=== PATIENT | female | born 1945 | race Caucasian/White ===

== ENCOUNTER 2018-06-29 17:36 | Emergency (ER) | payer MEDICARE, MEDICAID ==
[~2018-06-29] VITALS: Ht 182.9 cm; Wt 81.8 kg
[~2018-06-29 17:36] MED LIST: ATOR10TA70 PO; CLOP75TA15 PO; GABA-530 PO; HYDR-4383 PO; LEVO125T8 PO; LOSA50TA3 PO; METO25TA6 PO; NITR0.4T48 SL; TIZA2TAB4 PO
[2018-06-29 17:44] VITALS: BP 157/54
[2018-06-29] MEDS ORDERED: DOXYCYCLINE 100MG CAPSULE PO STA (18:10)
[2018-06-29] MEDS ORDERED: DOXY100C43 PO (18:12)
== END 2018-06-29 18:37 | disposition home or self-care (01) ==
LOC: ER 17:36
DX: S40.261A Insect bite (nonvenomous) of right shoulder, initial encounter (principal); F15.90 Other stimulant use, unspecified, uncomplicated; F17.210 Nicotine dependence, cigarettes, uncomplicated; Z79.899 Other long term (current) drug therapy; W57.XXXA Bitten or stung by nonvenomous insect and other nonvenomous arthropods, initial encounter; Y93.89 Activity, other specified; Y92.89 Other specified places as the place of occurrence of the external cause; Y99.8 Other external cause status
CPT/HCPCS: 99283

== ENCOUNTER 2018-09-30 18:45 | Emergency (ER) | payer MEDICARE, MEDICAID ==
[~2018-09-30] VITALS: Ht 180.3 cm; Wt 89.0 kg
[2018-09-30 21:50] LABS: BASOPHILS # (AUTO) 0.1 X10'3 (0-0.2); BASOPHILS % (AUTO) 0.9 % (0-1); EOSINOPHILS # (AUTO) 0.2 X10'3 (0-0.9); EOSINOPHILS % (AUTO) 2.1 % (0-6); HEMATOCRIT 45.9 % (35.0-45.0); HEMOGLOBIN 15.3 g/dl (12.0-16.0); LYMPHOCYTES # (AUTO) 2.8 X10'3 (1.1-4.8); LYMPHOCYTES % (AUTO) 33.5 % (21-51); MEAN CORPUSCULAR HEMOGLOBIN 31.5 PG (27.0-31.0); MEAN CORPUSCULAR HGB CONC 33.4 g/dL (33.0-36.5); MEAN CORPUSCULAR VOLUME 94.3 FL (78-98); MEAN PLATELET VOLUME 9.2 FL (7.4-10.4); MONOCYTES # (AUTO) 0.9 X10'3 (0-0.9); MONOCYTES % (AUTO) 10.5 % (2-12); NEUTROPHILS # (AUTO) 4.4 X10'3 (1.8-7.7); PLATELET COUNT 250 X10'3 (140-440); RED BLOOD COUNT 4.86 X10'6 (4.20-5.60); RED CELL DISTRIBUTION WIDTH 13.9 % (11.5-14.5); WHITE BLOOD COUNT 8.2 X10'3 (4.5-11.0)
[2018-09-30 22:10] LABS: ALANINE AMINOTRANSFERASE 108 U/L (12-78); ALBUMIN 3.8 G/DL (3.4-5.0); ALBUMIN/GLOBULIN RATIO 0.8 (1.1-1.5); ALKALINE PHOSPHATASE 62 IU/L (46-116); ANION GAP 10 (8-16); ASPARTATE AMINO TRANSFERASE 62 U/L (10-37); BILIRUBIN,TOTAL 0.6 MG/DL (0.1-1.0); BLOOD UREA NITROGEN 13 MG/DL (7-18); BUN/CREATININE RATIO 19.1 (6.6-38.0); CHLORIDE 104 MMOL/L (99-107); CREATININE 0.68 MG/DL (0.40-0.90); GLUCOSE 108 MG/DL (70-104); SODIUM 140 MMOL/L (135-145); TOTAL CARBON DIOXIDE 26.1 MMOL/L (24-32); TOTAL PROTEIN 8.7 G/DL (6.4-8.2); eGFR 85 ML/MIN
[2018-09-30 22:11] LABS: D-DIMER 0.48 MG/L FEU (0-0.50); PARTIAL THROMBOPLASTIN TIME 25 SECONDS (22-32)
[2018-09-30 22:15] LABS: ETHANOL < 0.010 GM/DL (0.0-0.010)
[2018-09-30 22:16] VITALS: BP 128/71
[2018-09-30] MEDS ORDERED: AZIT-63 PO (22:47)
== END 2018-09-30 23:04 | disposition home or self-care (01) ==
LOC: ER 18:46
DX: R06.02 Shortness of breath (principal); R05 Cough; E78.00 Pure hypercholesterolemia, unspecified; I10 Essential (primary) hypertension; F15.90 Other stimulant use, unspecified, uncomplicated; Z86.73 Personal history of transient ischemic attack (TIA), and cerebral infarction without residual deficits; Z79.2 Long term (current) use of antibiotics; Z79.899 Other long term (current) drug therapy; Z98.890 Other specified postprocedural states
CPT/HCPCS: 36415; 71045; 80053; 80320; 83880; 84484; 85025; 85379; 85610; 85730; 93005; 99284

== ENCOUNTER 2019-08-17 20:51 | Inpatient (IN) | payer MEDICARE, MEDICAID ==
[~2019-08-17] VITALS: Ht 180.3 cm; Wt 86.0 kg
[~2019-08-17 20:51] MED LIST changes: -TIZA2TAB4 PO; +TIZA2TAB5 PO
[2019-08-17] MEDS ORDERED: aspirin 81mg tab.chew PO ONE (22:00)
[2019-08-17 22:42] LABS: BASOPHILS % (AUTO) 0.6 % (0-1); EOSINOPHILS # (AUTO) 0.1 X10'3 (0-0.9); EOSINOPHILS % (AUTO) 1.9 % (0-6); HEMOGLOBIN 14.9 g/dl (12.0-16.0); LYMPHOCYTES # (AUTO) 2.1 X10'3 (1.1-4.8); LYMPHOCYTES % (AUTO) 32.2 % (21-51); MEAN CORPUSCULAR HEMOGLOBIN 31.2 PG (27.0-31.0); MEAN CORPUSCULAR HGB CONC 33.8 g/dL (33.0-36.5); MEAN CORPUSCULAR VOLUME 92.4 FL (78-98); MEAN PLATELET VOLUME 9.7 FL (7.4-10.4); MONOCYTES # (AUTO) 0.8 X10'3 (0-0.9); MONOCYTES % (AUTO) 12.3 % (2-12); NEUTROPHILS # (AUTO) 3.5 X10'3 (1.8-7.7); PLATELET COUNT 235 X10'3 (140-440); RED BLOOD COUNT 4.77 X10'6 (4.20-5.60); RED CELL DISTRIBUTION WIDTH 13.9 % (11.5-14.5); WHITE BLOOD COUNT 6.6 X10'3 (4.5-11.0)
[2019-08-17 22:50] LABS: PARTIAL THROMBOPLASTIN TIME 25 SECONDS (22-32)
[2019-08-17 22:53] LABS: ALANINE AMINOTRANSFERASE 18 U/L (12-78); ALBUMIN/GLOBULIN RATIO 0.9 (1.1-1.5); ALKALINE PHOSPHATASE 51 IU/L (46-116); ANION GAP 9 (8-16); ASPARTATE AMINO TRANSFERASE 19 U/L (10-37); BILIRUBIN,TOTAL 0.4 MG/DL (0.1-1.0); BLOOD UREA NITROGEN 16 MG/DL (7-18); BUN/CREATININE RATIO 23.2 (6.6-38.0); CALCIUM 8.9 MG/DL (8.5-10.1); CHLORIDE 106 MMOL/L (99-107); CREATININE 0.69 MG/DL (0.40-0.90); GLUCOSE 103 MG/DL (70-104); POTASSIUM 3.7 MMOL/L (3.5-5.1); SODIUM 142 MMOL/L (135-145); TOTAL CARBON DIOXIDE 27.1 MMOL/L (24-32); TOTAL PROTEIN 8.4 G/DL (6.4-8.2); eGFR 84 ML/MIN
[2019-08-17 23:01] LABS: MAGNESIUM 2.1 MG/DL (1.5-2.4)
[2019-08-18] VITALS (9 sets, daily range): BP systolic 120–160; BP diastolic 40–95
[2019-08-18 00:39] LABS: ETHANOL 0.018 GM/DL (0.0-0.010)
[2019-08-18] MEDS ORDERED: mag hydrox/Alum hydrox/simeth 30ml oral suspension PO PRN (00:55)
[2019-08-18] MEDS ORDERED: LORazepam 2 mg/ml vial IV PRN (00:55)
[2019-08-18] MEDS ORDERED: magnesium 2GM in 50ml NS 50 ML IV PRN (00:55)
[2019-08-18] MEDS ORDERED: ondansetron/PF 4mg/2ml inj IV PRN (00:55)
[2019-08-18] MEDS ORDERED: acetaminophen 325mg tablet PO PRN (00:55)
[2019-08-18] MEDS ORDERED: potassium CL 10mEq/100ml bag 100 ML IV PRN ×2 (00:55)
[2019-08-18] MEDS ORDERED: LORazepam 1 MG tablet PO PRN (00:55)
[2019-08-18] MEDS ORDERED: magnesium Cl slow-release 64mg tablet PO PRN (00:55)
[2019-08-18] MEDS ORDERED: potassium Cl 20 mEq SR tablet PO PRN ×2 (00:55)
[2019-08-18] MEDS ORDERED: magnesium 4gm in 100ml NS 100 ML IV PRN (00:55)
[2019-08-18] MEDS ORDERED: ESOM20CA PO (00:56)
[2019-08-18] MEDS ORDERED: levothyroxine PO (00:56)
--- NOTE | 2019-08-18 01:57 | NUR ---
Patient in room . I have received report from ROCIO Salgado and had the opportunity to ask questions and assume patient care.
[2019-08-18] MEDS: normal saline 1000ml 1,000 ML IV SCH ×3 (02:31→12:25)
[2019-08-18] MEDS: acetaminophen 325mg tablet PO PRN ×3 (02:34→23:40)
--- NOTE | 2019-08-18 06:43 | NUR ---
Patient in room ORTHO 4011. I have received report from Jenni CHAN and had the opportunity to ask questions and assume patient care.
[2019-08-18] MEDS: K and/or MAG REPLACEMENT MC SCH ×2 (07:30→20:00)
[2019-08-18] MEDS: docusate sod 100mg capsule PO SCH ×2 (07:34→20:04)
[2019-08-18] MEDS: heparin, porcine 5000 units/ml vial SQ SCH ×2 (07:35→20:05)
[2019-08-18 08:26] LABS: URINE AMPHETAMINE SCREEN NEGATIVE (Neg); URINE BARBITUATE SCREEN NEGATIVE (Neg); URINE BENZODIAZEPINES SCREEN NEGATIVE (Neg); URINE CANNABINOID SCREEN POSITIVE (Neg); URINE COCAINE SCREEN NEGATIVE (Neg); URINE METHADONE SCREEN NEGATIVE (Neg); URINE OPIATE SCREEN NEGATIVE (Neg); URINE PHENCYCLIDINE SCREEN NEGATIVE (Neg)
[2019-08-18] MEDS ORDERED: LEVO137T2 PO (14:47)
[2019-08-18] MEDS ORDERED: METO25TA6 PO (14:48)
--- NOTE | 2019-08-18 18:33 | NUR ---
Problems reprioritized. Patient report given, questions answered & plan of care reviewed with Jenni CHAN.
[2019-08-18] MEDS: metoprolol tartrate 25mg tablet PO SCH (20:04)
[2019-08-19] MEDS: normal saline 1000ml 1,000 ML IV SCH (01:03)
[2019-08-19 01:06] VITALS: BP 130/64
[2019-08-19 05:06] VITALS: BP 132/85
[2019-08-19 06:00] VITALS: BP 132/85
[2019-08-19 06:12] LABS: BASOPHILS # (AUTO) 0.1 X10'3 (0-0.2); BASOPHILS % (AUTO) 0.9 % (0-1); EOSINOPHILS # (AUTO) 0.3 X10'3 (0-0.9); EOSINOPHILS % (AUTO) 4.3 % (0-6); HEMOGLOBIN 13.2 g/dl (12.0-16.0); LYMPHOCYTES # (AUTO) 3.4 X10'3 (1.1-4.8); LYMPHOCYTES % (AUTO) 52.8 % (21-51); MEAN CORPUSCULAR HEMOGLOBIN 31.9 PG (27.0-31.0); MEAN CORPUSCULAR HGB CONC 34.6 g/dL (33.0-36.5); MEAN CORPUSCULAR VOLUME 92.3 FL (78-98); MEAN PLATELET VOLUME 9.9 FL (7.4-10.4); MONOCYTES # (AUTO) 0.7 X10'3 (0-0.9); MONOCYTES % (AUTO) 11.6 % (2-12); NEUTROPHILS # (AUTO) 1.9 X10'3 (1.8-7.7); NEUTROPHILS % (AUTO) 30.4 % (42-75); PLATELET COUNT 199 X10'3 (140-440); RED BLOOD COUNT 4.12 X10'6 (4.20-5.60); RED CELL DISTRIBUTION WIDTH 13.9 % (11.5-14.5); WHITE BLOOD COUNT 6.4 X10'3 (4.5-11.0)
[2019-08-19 06:22] LABS: ALANINE AMINOTRANSFERASE 11 U/L (12-78); ALBUMIN 3.3 G/DL (3.4-5.0); ALBUMIN/GLOBULIN RATIO 0.9 (1.1-1.5); ALKALINE PHOSPHATASE 42 IU/L (46-116); ANION GAP 8 (8-16); ASPARTATE AMINO TRANSFERASE 16 U/L (10-37); BILIRUBIN,TOTAL 0.6 MG/DL (0.1-1.0); BLOOD UREA NITROGEN 17 MG/DL (7-18); BUN/CREATININE RATIO 28.8 (6.6-38.0); CALCIUM 8.6 MG/DL (8.5-10.1); CHLORIDE 111 MMOL/L (99-107); CHOL/HDL RATIO 3.7 (0.00-4.99); CHOLESTEROL 158 MG/DL (0-200); CREATININE 0.59 MG/DL (0.40-0.90); GLUCOSE 95 MG/DL (70-104); HDL CHOLESTEROL 43 MG/DL (35-60); LDL CHOLESTEROL 101 MG/DL (50-100); MAGNESIUM 1.9 MG/DL (1.5-2.4); POTASSIUM 3.7 MMOL/L (3.5-5.1); SODIUM 142 MMOL/L (135-145); TOTAL CARBON DIOXIDE 23.2 MMOL/L (24-32); TOTAL PROTEIN 7.1 G/DL (6.4-8.2); TRIGLYCERIDES 76 MG/DL (20-135); eGFR > 90 ML/MIN
--- NOTE | 2019-08-19 06:26 | NUR ---
Problems reprioritized. Patient report given, questions answered & plan of care reviewed with ROCIO Campbell.
[2019-08-19] MEDS ORDERED: levoTHYROXINE 112mcg tablet PO SCH (07:00)
[2019-08-19] MEDS ORDERED: levoTHYROXINE 25mcg tablet PO SCH (07:00)
[2019-08-19] MEDS ORDERED: pantoprazole 40mg Tablet.DR PO SCH (07:30)
[2019-08-19] MEDS: docusate sod 100mg capsule PO SCH (07:39)
[2019-08-19] MEDS: metoprolol tartrate 25mg tablet PO SCH (07:43)
[2019-08-19] MEDS: heparin, porcine 5000 units/ml vial SQ SCH (07:44)
[2019-08-19] MEDS: K and/or MAG REPLACEMENT MC SCH (08:00)
[2019-08-19 10:00] VITALS: BP_SYST 128; BP_SYST 151; BP_SYST 152; BP_DIAS 55; BP_DIAS 60; BP_DIAS 70
[2019-08-19] MEDS ORDERED: METO25TA6 PO (10:14)
[2019-08-19] MEDS ORDERED: ASPI-611 PO (10:14)
[2019-08-19] MEDS ORDERED: LEVO25TA7 PO (10:14)
[2019-08-19 10:50] LABS: CLARITY,URINE SLIGHTLY CLOUDY (Clear); COLOR,URINE STRAW (Yellow); GLUCOSE, URINE NEGATIVE (Neg); KETONES,URINE NEGATIVE (Neg); LEUKOCYTE ESTERASE ,URINE MODERATE (Neg); NITRITES, URINE NEGATIVE (Neg); OCCULT BLOOD,URINE NEGATIVE (Neg); PROTEIN,URINE NEGATIVE (Neg); UROBILINOGEN,URINE 0.2 E.U/dL (0.2-1.0)
[2019-08-19 10:54] LABS: UA COLLECTION TYPE VOIDED
[2019-08-19 10:56] LABS: BACTERIA,URINE 1+ /HPF (Neg); MUCUS STRANDS NONE SEEN /LPF (Neg); RBC,URINE NONE SEEN /HPF (0-2); SQUAMOUS EPITHELIAL CELL,UR MODERATE /LPF (FEW); WBC CLUMPS,URINE FEW /HPF (NEGATIVE)
--- NOTE | 2019-08-20 15:39 | NUR ---
Case management DC follow up: unable to contact. pt number is disconnected, pt roommate number mailbox full
== END 2019-08-19 13:11 | disposition home or self-care (01) | DRG 93 ==
LOC: ER 20:52 → ED HOLD 08-18 00:54 → ORTHO 4S 08-18 02:07
PROVIDERS: ADMIT Internal Medicine; ATTEND Internal Medicine
DX: G92 Toxic encephalopathy (principal); E03.9 Hypothyroidism, unspecified; E78.00 Pure hypercholesterolemia, unspecified; E78.5 Hyperlipidemia, unspecified; F12.90 Cannabis use, unspecified, uncomplicated; F43.10 Post-traumatic stress disorder, unspecified; I10 Essential (primary) hypertension; I48.0 Paroxysmal atrial fibrillation; T44.7X5A Adverse effect of beta-adrenoreceptor antagonists, initial encounter; F15.90 Other stimulant use, unspecified, uncomplicated; K21.9 Gastro-esophageal reflux disease without esophagitis; R00.1 Bradycardia, unspecified; R26.89 Other abnormalities of gait and mobility; Z86.73 Personal history of transient ischemic attack (TIA), and cerebral infarction without residual deficits; Y92.89 Other specified places as the place of occurrence of the external cause
CPT/HCPCS: 36415; 70544; 70551; 71045; 80053; 80061; 80305; 80320; 81001; 83735; 83880; 84443; 84484; 85025; 85610; 85730; 87081; 93005; 93306; 93880; 97161; 97530; G0378; J1644; J7030

== ENCOUNTER 2021-05-07 03:21 | Inpatient (IN) | payer MEDICARE, MEDICAID ==
[~2021-05-07] VITALS: Ht 180.3 cm; Wt 81.8 kg
[~2021-05-07 03:21] MED LIST changes: -ATOR10TA70 PO; -CLOP75TA15 PO; +ESOM20CA PO; -GABA-530 PO; -HYDR-4383 PO; -LEVO125T8 PO; +LEVO137T2 PO; +LOP25T PO; -LOSA50TA3 PO; -METO25TA6 PO; -NITR0.4T48 SL; -TIZA2TAB5 PO
[2021-05-07 04:35] LABS: BASOPHILS % (AUTO) 0.4 % (0-1); EOSINOPHILS % (AUTO) 0.1 % (0-6); HEMATOCRIT 44.7 % (35.0-45.0); HEMOGLOBIN 15.2 g/dl (12.0-16.0); LYMPHOCYTES # (AUTO) 1.4 X10'3 (1.1-4.8); LYMPHOCYTES % (AUTO) 31.5 % (21-51); MEAN CORPUSCULAR HEMOGLOBIN 33.2 PG (27.0-31.0); MEAN CORPUSCULAR HGB CONC 33.9 g/dL (33.0-36.5); MEAN CORPUSCULAR VOLUME 97.9 FL (78-98); MEAN PLATELET VOLUME 9.9 FL (7.4-10.4); MONOCYTES # (AUTO) 0.6 X10'3 (0-0.9); MONOCYTES % (AUTO) 15.1 % (2-12); NEUTROPHILS # (AUTO) 2.3 X10'3 (1.8-7.7); NEUTROPHILS % (AUTO) 52.9 % (42-75); PLATELET COUNT 157 X10'3 (140-440); RED BLOOD COUNT 4.56 X10'6 (4.20-5.60); RED CELL DISTRIBUTION WIDTH 13.9 % (11.5-14.5); WHITE BLOOD COUNT 4.3 X10'3 (4.5-11.0)
[2021-05-07 04:47] LABS: D-DIMER 3.06 MG/L FEU (0-0.50); PARTIAL THROMBOPLASTIN TIME 31 SECONDS (22-32)
[2021-05-07 04:58] LABS: ALANINE AMINOTRANSFERASE 26 U/L (12-78); ALBUMIN 2.9 G/DL (3.4-5.0); ALBUMIN/GLOBULIN RATIO 0.7 (1.1-1.5); ALKALINE PHOSPHATASE 33 IU/L (46-116); ANION GAP 11 (8-16); ASPARTATE AMINO TRANSFERASE 38 U/L (10-37); BILIRUBIN,TOTAL 0.4 MG/DL (0.1-1.0); BLOOD UREA NITROGEN 12 MG/DL (7-18); BUN/CREATININE RATIO 17.1 (6.6-38.0); C-REACTIVE PROTEIN 3.47 MG/DL (0.0-0.5); CALCIUM 7.8 MG/DL (8.5-10.1); CHLORIDE 102 MMOL/L (99-107); GLUCOSE 136 MG/DL (70-104); SODIUM 136 MMOL/L (135-145); TOTAL CARBON DIOXIDE 23.2 MMOL/L (24-32); TOTAL PROTEIN 7.2 G/DL (6.4-8.2); eGFR 82 ML/MIN
[2021-05-07 05:03] LABS: POTASSIUM 2.8 MMOL/L (3.5-5.1)
--- NOTE | 2021-05-07 05:05 | NUR ---
Notified by lab of critical potassium value of 2.8. Notified physician Sin. No new orders yet.
[2021-05-07] MEDS ORDERED: DEXAMETHASONE 6 MG TABLET PO SCH (05:10)
[2021-05-07] MEDS ORDERED: DEXAMETHASONE 6 MG TABLET PO ONE (05:10)
[2021-05-07] MEDS ORDERED: acetaminophen 650mg rectal suppository RC PRN (05:15)
[2021-05-07] MEDS ORDERED: mag hydrox/Alum hydrox/simeth 30ml oral suspension PO PRN (05:15)
[2021-05-07] MEDS ORDERED: HYDROcodone/acetaminophen 5mg/325mg tablet PO PRN (05:15)
[2021-05-07] MEDS ORDERED: magnesium hydroxide 30ml (MOM) UD suspension PO PRN (05:15)
[2021-05-07] MEDS ORDERED: potassium Cl 20 mEq SR tablet PO PRN (05:15)
[2021-05-07] MEDS ORDERED: diphenhydrAMINE 50 mg/ml inj IV PRN (05:15)
[2021-05-07] MEDS ORDERED: diphenhydrAMINE 25mg capsule PO PRN (05:15)
[2021-05-07] MEDS ORDERED: morphine 2 MG/ML inj. syringe IV PRN ×2 (05:15)
[2021-05-07] MEDS ORDERED: ondansetron/PF 4mg/2ml inj IV PRN (05:15)
[2021-05-07] MEDS ORDERED: ondansetron 4mg rapidly disintigrating tab PO PRN (05:15)
[2021-05-07] MEDS ORDERED: acetaminophen 325mg tablet PO PRN ×2 (05:15)
[2021-05-07] MEDS ORDERED: bisacodyl 10mg suppository rectal RC PRN (05:15)
[2021-05-07] MEDS ORDERED: potassium Cl 40MEQ/1/2NS 520ml 520 ML IV PRN ×2 (05:15)
[2021-05-07] MEDS ORDERED: ALBUTEROL INHALER 1 PUFF/90 MCG INHALER IH PRN (05:25)
[2021-05-07] MEDS: potassium Cl 20 mEq SR tablet PO PRN ×2 (05:42→11:40)
[2021-05-07] MEDS: normal saline 1000ml 1,000 ML IV SCH ×2 (05:55→20:53)
[2021-05-07] MEDS ORDERED: iohexol 350MG/ML 100ml bottle IV ONE (06:01)
--- NOTE | 2021-05-07 06:03 | NUR ---
Administered 40MEQ of Potassium PO for level of 2.8
[2021-05-07] MEDS ORDERED: METO25TA6 PO (06:05)
[2021-05-07] MEDS ORDERED: LOSA50TA64 PO (06:05)
[2021-05-07 06:36] LABS: PHOSPHORUS 2.3 MG/DL (2.3-4.5)
--- NOTE | 2021-05-07 07:31 | NUR ---
CT Scan called re' IV placed and pt ready for imaging ext [phone]
--- NOTE | 2021-05-07 07:47 | NUR ---
Pt off the unti to CT
[2021-05-07] MEDS ORDERED: azithromycin/NS 500mg/250ml 250 ML IV SCH (08:00)
[2021-05-07] MEDS ORDERED: CefTRIAXone/D5W-Rocephin 1gm 50 ML IV SCH (08:00)
[2021-05-07] MEDS: docusate sod 100mg capsule PO SCH ×2 (08:00→20:52)
[2021-05-07] MEDS ORDERED: dexamethasone 4mg/ml inj IV SCH (08:00)
[2021-05-07] MEDS: K and/or MAG REPLACEMENT MC SCH ×3 (08:10→20:00)
[2021-05-07] MEDS: enoxaparin 40mg/0.4ml syringe SUBCUT SCH ×2 (08:11→20:52)
[2021-05-07] MEDS ORDERED: magnesium 4gm in 100ml NS 100 ML IV PRN (08:35)
[2021-05-07] MEDS ORDERED: magnesium Cl slow-release 64mg tablet PO PRN (08:35)
[2021-05-07] MEDS: losartan 50mg tablet PO SCH ×2 (08:35→09:34)
[2021-05-07] MEDS: metoprolol tartrate 25mg tablet PO SCH (09:35)
--- NOTE | 2021-05-07 11:41 | NUR ---
k-dUR ADMIN AT 0800, NOT 1140
--- NOTE | 2021-05-07 15:17 | NUR ---
Attempted to call report to ext [phone], room 4016. No answer
--- NOTE | 2021-05-07 16:12 | NUR ---
Report called to Sobia CHAN
--- NOTE | 2021-05-07 16:13 | NUR ---
Patient in room ED 1. I have received report from Lauren CHAN and had the opportunity to ask questions and assume patient care.
[2021-05-07 18:00] VITALS: BP 141/71
[2021-05-07 18:26] LABS: POTASSIUM 4.6 MMOL/L (3.5-5.1)
--- NOTE | 2021-05-07 18:38 | NUR ---
Preceptor documentation: I have reviewed and agree with all interventions, assessments performed and documented by Maxine Rainey RN.
--- NOTE | 2021-05-07 19:02 | NUR ---
Patient in room ORTHO 4016. I have received report from Maxine CHAN and had the opportunity to ask questions and assume patient care.
[2021-05-07] MEDS: dexamethasone 4mg/ml inj IV SCH (20:52)
[2021-05-07] MEDS: HYDROcodone/acetaminophen 10/325mg tab PO PRN (20:53)
[2021-05-07 22:00] VITALS: BP 135/66
[2021-05-08 02:00] VITALS: BP 150/83
[2021-05-08 05:00] VITALS: BP 129/73
--- NOTE | 2021-05-08 06:13 | NUR ---
Problems reprioritized. Patient report given, questions answered & plan of care reviewed with Maxine CHAN.
--- NOTE | 2021-05-08 06:14 | NUR ---
Patient in room ORTHO 4016. I have received report from Crystal CHAN and had the opportunity to ask questions and assume patient care.
[2021-05-08] MEDS: docusate sod 100mg capsule PO SCH ×3 (07:54→19:45)
[2021-05-08] MEDS: dexamethasone 4mg/ml inj IV SCH ×2 (07:54→19:50)
[2021-05-08] MEDS: metoprolol tartrate 25mg tablet PO SCH (07:55)
[2021-05-08] MEDS: losartan 50mg tablet PO SCH ×2 (07:55→08:00)
[2021-05-08] MEDS: enoxaparin 40mg/0.4ml syringe SUBCUT SCH ×2 (07:56→19:50)
[2021-05-08] MEDS: K and/or MAG REPLACEMENT MC SCH ×4 (08:00→19:42)
[2021-05-08 08:19] LABS: EOSINOPHILS % (AUTO) 0 % (0-6); HEMOGLOBIN 15.5 g/dl (12.0-16.0); MONOCYTES # (AUTO) 1.1 X10'3 (0-0.9)
[2021-05-08 08:21] LABS: BASOPHILS % (AUTO) 0.1 % (0-1); HEMATOCRIT 45.8 % (35.0-45.0); LYMPHOCYTES % (AUTO) 26.7 % (21-51); MEAN CORPUSCULAR HEMOGLOBIN 33.6 PG (27.0-31.0); MEAN CORPUSCULAR HGB CONC 33.9 g/dL (33.0-36.5); MEAN CORPUSCULAR VOLUME 99.1 FL (78-98); MEAN PLATELET VOLUME 10.6 FL (7.4-10.4); MONOCYTES % (AUTO) 14.1 % (2-12); NEUTROPHILS # (AUTO) 4.4 X10'3 (1.8-7.7); NEUTROPHILS % (AUTO) 59.1 % (42-75); PLATELET COUNT 181 X10'3 (140-440); RED BLOOD COUNT 4.62 X10'6 (4.20-5.60); RED CELL DISTRIBUTION WIDTH 14.4 % (11.5-14.5); WHITE BLOOD COUNT 7.4 X10'3 (4.5-11.0)
[2021-05-08 09:20] LABS: ALANINE AMINOTRANSFERASE 22 U/L (12-78); ALBUMIN 2.8 G/DL (3.4-5.0); ALBUMIN/GLOBULIN RATIO 0.6 (1.1-1.5); ALKALINE PHOSPHATASE 34 IU/L (46-116); ANION GAP 12 (8-16); ASPARTATE AMINO TRANSFERASE 32 U/L (10-37); BILIRUBIN,TOTAL 0.3 MG/DL (0.1-1.0); BLOOD UREA NITROGEN 15 MG/DL (7-18); BUN/CREATININE RATIO 23.1 (6.6-38.0); C-REACTIVE PROTEIN 2.51 MG/DL (0.0-0.5); CALCIUM 8.2 MG/DL (8.5-10.1); CHLORIDE 109 MMOL/L (99-107); CHOL/HDL RATIO 3.4 (0.00-4.99); CHOLESTEROL 140 MG/DL (0-200); CREATININE 0.65 MG/DL (0.40-0.90); GLUCOSE 143 MG/DL (70-104); HDL CHOLESTEROL 41 MG/DL (35-60); LACTATE DEHYDROGENASE 296 U/L (81-234); LDL CHOLESTEROL 87 MG/DL (50-100); MAGNESIUM 2.5 MG/DL (1.5-2.4); PHOSPHORUS 2.4 MG/DL (2.3-4.5); POTASSIUM 4.3 MMOL/L (3.5-5.1); SODIUM 144 MMOL/L (135-145); TOTAL CARBON DIOXIDE 22.6 MMOL/L (24-32); TOTAL PROTEIN 7.4 G/DL (6.4-8.2); TRIGLYCERIDES 75 MG/DL (20-135); eGFR 89 ML/MIN
[2021-05-08 10:00] VITALS: BP 135/66
[2021-05-08] MEDS: HYDROcodone/acetaminophen 10/325mg tab PO PRN ×3 (10:15→19:51)
[2021-05-08 14:00] VITALS: BP 127/68
[2021-05-08] MEDS: normal saline 1000ml 1,000 ML IV SCH (14:15)
--- NOTE | 2021-05-08 15:48 | NUR ---
Preceptor documentation: I have reviewed and agree with all interventions, assessments performed and documented by Maxine Rainey RN.
--- NOTE | 2021-05-08 15:53 | NUR ---
O2 Sat at rest on room air:__93_% If below 89%: Recovery O2 Sat at rest on ___LPM:___%:___% via (mask/nasal cannula, etc..) No further documentation is necessary. If O2 Sat did not drop below 89% on room air,ambulate patient on room air. O2 Sat while ambulating on room air:__88_% Recovery O2 Sat while ambulating on __95_LPM:__3L_% No further documentation is necessary. If patient does not drop below 89% while ambulating, he/she does not qualify for home O2.
[2021-05-08 18:00] VITALS: BP 126/84
--- NOTE | 2021-05-08 18:45 | NUR ---
Patient in room ORTHO 4016. I have received report from Maxine CHAN and had the opportunity to ask questions and assume patient care.
[2021-05-08 22:00] VITALS: BP 139/81
[2021-05-09] VITALS (7 sets, daily range): BP systolic 137–175; BP diastolic 69–97
--- NOTE | 2021-05-09 06:16 | NUR ---
Problems reprioritized. Patient report given, questions answered & plan of care reviewed with Kaitlin CHAN.
--- NOTE | 2021-05-09 06:29 | NUR ---
Patient in room ORTHO 4016. I have received report from ROCIO Rojas and had the opportunity to ask questions and assume patient care.
[2021-05-09] MEDS: metoprolol tartrate 25mg tablet PO SCH (07:40)
[2021-05-09] MEDS: dexamethasone 4mg/ml inj IV SCH ×2 (07:41→19:45)
[2021-05-09] MEDS: docusate sod 100mg capsule PO SCH ×2 (07:41→19:46)
[2021-05-09] MEDS: enoxaparin 40mg/0.4ml syringe SUBCUT SCH ×2 (07:41→19:46)
[2021-05-09] MEDS: losartan 50mg tablet PO SCH (07:41)
[2021-05-09] MEDS: K and/or MAG REPLACEMENT MC SCH ×2 (08:00→19:46)
[2021-05-09 08:25] LABS: EOSINOPHILS % (AUTO) 0 % (0-6); LYMPHOCYTES # (AUTO) 1.5 X10'3 (1.1-4.8)
[2021-05-09 08:27] LABS: BASOPHILS % (AUTO) 0.2 % (0-1); HEMATOCRIT 43.4 % (35.0-45.0); HEMOGLOBIN 14.7 g/dl (12.0-16.0); LYMPHOCYTES % (AUTO) 12.4 % (21-51); MEAN CORPUSCULAR HEMOGLOBIN 33.4 PG (27.0-31.0); MEAN CORPUSCULAR HGB CONC 33.8 g/dL (33.0-36.5); MEAN CORPUSCULAR VOLUME 98.6 FL (78-98); MEAN PLATELET VOLUME 10.4 FL (7.4-10.4); MONOCYTES # (AUTO) 1.2 X10'3 (0-0.9); NEUTROPHILS # (AUTO) 9.1 X10'3 (1.8-7.7); NEUTROPHILS % (AUTO) 77.4 % (42-75); PLATELET COUNT 230 X10'3 (140-440); RED BLOOD COUNT 4.41 X10'6 (4.20-5.60); RED CELL DISTRIBUTION WIDTH 14.6 % (11.5-14.5); WHITE BLOOD COUNT 11.8 X10'3 (4.5-11.0)
[2021-05-09 08:36] LABS: ALANINE AMINOTRANSFERASE 22 U/L (12-78); ALBUMIN 2.8 G/DL (3.4-5.0); ALBUMIN/GLOBULIN RATIO 0.7 (1.1-1.5); ALKALINE PHOSPHATASE 37 IU/L (46-116); ANION GAP 8 (8-16); ASPARTATE AMINO TRANSFERASE 29 U/L (10-37); BILIRUBIN,TOTAL 0.3 MG/DL (0.1-1.0); BLOOD UREA NITROGEN 15 MG/DL (7-18); BUN/CREATININE RATIO 25.4 (6.6-38.0); C-REACTIVE PROTEIN 1.43 MG/DL (0.0-0.5); CALCIUM 8.4 MG/DL (8.5-10.1); CHLORIDE 109 MMOL/L (99-107); CREATININE 0.59 MG/DL (0.40-0.90); GLUCOSE 130 MG/DL (70-104); LACTATE DEHYDROGENASE 311 U/L (81-234); MAGNESIUM 2.1 MG/DL (1.5-2.4); PHOSPHORUS 2.7 MG/DL (2.3-4.5); POTASSIUM 3.8 MMOL/L (3.5-5.1); SODIUM 141 MMOL/L (135-145); TOTAL CARBON DIOXIDE 23.7 MMOL/L (24-32); TOTAL PROTEIN 7.1 G/DL (6.4-8.2); eGFR > 90 ML/MIN
[2021-05-09 08:49] LABS: D-DIMER 0.96 MG/L FEU (0-0.50)
[2021-05-09] MEDS: normal saline 1000ml 1,000 ML IV SCH (09:50)
[2021-05-09] MEDS ORDERED: PRED10TA23 PO (14:17)
[2021-05-09] MEDS ORDERED: BENZ-16 PO (14:17)
[2021-05-09] MEDS ORDERED: ALBU6.7H9 IH (14:17)
[2021-05-09] MEDS ORDERED: ASPI-611 PO (14:17)
--- NOTE | 2021-05-09 15:40 | NUR ---
PAGER ID: [phone] MESSAGE: Kaitlin O/N [phone] per PT, pt is not safe to discharge home at this time. Has 6-7 steps to get into trailer, as well as c/o dizziness/falls at home. BP during PT 175/97 HR 64
[2021-05-09] MEDS: levoTHYROXINE 25mcg tablet PO SCH (17:28)
--- NOTE | 2021-05-09 18:17 | NUR ---
Problems reprioritized. Patient report given, questions answered & plan of care reviewed with ROCIO Villavicencio.
--- NOTE | 2021-05-09 18:38 | NUR ---
Patient in room ORTHO 4016. I have received report from Kaitlin CHAN and had the opportunity to ask questions and assume patient care.
[2021-05-09] MEDS ORDERED: HYDROcodone/acetaminophen 5mg/325mg tablet PO ONE (20:00)
[2021-05-10 02:00] VITALS: BP 166/80
[2021-05-10 06:00] VITALS: BP 165/77
[2021-05-10 06:31] LABS: BASOPHILS % (AUTO) 0.1 % (0-1); EOSINOPHILS % (AUTO) 0 % (0-6); MEAN CORPUSCULAR VOLUME 97.5 FL (78-98)
[2021-05-10 06:34] LABS: HEMATOCRIT 43.4 % (35.0-45.0); HEMOGLOBIN 14.9 g/dl (12.0-16.0); LYMPHOCYTES # (AUTO) 1.1 X10'3 (1.1-4.8); LYMPHOCYTES % (AUTO) 12.8 % (21-51); MEAN CORPUSCULAR HEMOGLOBIN 33.4 PG (27.0-31.0); MEAN CORPUSCULAR HGB CONC 34.3 g/dL (33.0-36.5); MEAN PLATELET VOLUME 10.1 FL (7.4-10.4); MONOCYTES # (AUTO) 0.7 X10'3 (0-0.9); MONOCYTES % (AUTO) 8.3 % (2-12); NEUTROPHILS % (AUTO) 78.8 % (42-75); PLATELET COUNT 254 X10'3 (140-440); RED BLOOD COUNT 4.45 X10'6 (4.20-5.60); RED CELL DISTRIBUTION WIDTH 14.5 % (11.5-14.5); WHITE BLOOD COUNT 8.8 X10'3 (4.5-11.0)
[2021-05-10 06:40] LABS: D-DIMER 0.91 MG/L FEU (0-0.50)
--- NOTE | 2021-05-10 06:48 | NUR ---
Problems reprioritized. Patient report given, questions answered & plan of care reviewed with Shannan CHAN.
[2021-05-10 06:49] LABS: ALANINE AMINOTRANSFERASE 37 U/L (12-78); ALBUMIN 2.7 G/DL (3.4-5.0); ALBUMIN/GLOBULIN RATIO 0.6 (1.1-1.5); ALKALINE PHOSPHATASE 35 IU/L (46-116); ANION GAP 11 (8-16); ASPARTATE AMINO TRANSFERASE 38 U/L (10-37); BILIRUBIN,TOTAL 0.3 MG/DL (0.1-1.0); BLOOD UREA NITROGEN 13 MG/DL (7-18); BUN/CREATININE RATIO 19.7 (6.6-38.0); C-REACTIVE PROTEIN 1.11 MG/DL (0.0-0.5); CALCIUM 8.3 MG/DL (8.5-10.1); CHLORIDE 109 MMOL/L (99-107); CREATININE 0.66 MG/DL (0.40-0.90); GLUCOSE 147 MG/DL (70-104); LACTATE DEHYDROGENASE 285 U/L (81-234); MAGNESIUM 2.1 MG/DL (1.5-2.4); PHOSPHORUS 2.8 MG/DL (2.3-4.5); POTASSIUM 3.8 MMOL/L (3.5-5.1); SODIUM 143 MMOL/L (135-145); TOTAL CARBON DIOXIDE 23.4 MMOL/L (24-32); TOTAL PROTEIN 6.9 G/DL (6.4-8.2); eGFR 88 ML/MIN
[2021-05-10] MEDS: levoTHYROXINE 25mcg tablet PO SCH (07:38)
[2021-05-10] MEDS: dexamethasone 4mg/ml inj IV SCH (07:39)
[2021-05-10] MEDS: docusate sod 100mg capsule PO SCH (07:40)
[2021-05-10] MEDS: enoxaparin 40mg/0.4ml syringe SUBCUT SCH (07:42)
[2021-05-10] MEDS: losartan 50mg tablet PO SCH (07:42)
[2021-05-10] MEDS: metoprolol tartrate 25mg tablet PO SCH (07:42)
[2021-05-10] MEDS: K and/or MAG REPLACEMENT MC SCH (08:00)
[2021-05-10] MEDS ORDERED: LEVO25TA7 PO (13:30)
--- NOTE | 2021-05-10 15:29 | NUR ---
PAGER ID: [phone] MESSAGE: [id number] EULOGIO LEFT 189/101 HR 64 RIGHT 216/101 HR 64 BOTH SEATED AFTER STANDING ROOM MATE LOOKING FOR RIDE IF STILL DC HOME. 1495 ZOE
[2021-05-10] MEDS ORDERED: METO-395 PO (15:34)
[2021-05-10] MEDS ORDERED: amLODIPine 5mg tablet PO ONE (15:35)
[2021-05-10] MEDS ORDERED: hydrALAZINE 20mg/ml inj. IV ONE (15:35)
[2021-05-10] MEDS ORDERED: AMLO5TAB16 PO (15:35)
[2021-05-10 15:51] VITALS: BP_SYST 189
== END 2021-05-10 17:45 | disposition home health service (06) | DRG 137 ==
LOC: ER 03:22 → ED HOLD 05:22 → ORTHO 4S 17:00
PROVIDERS: ADMIT Family Medicine; ATTEND Family Medicine
PROC: B32T1ZZ Computerized Tomography (CT Scan) of Left Pulmonary Artery using Low Osmolar Contrast (ICD-10-PCS; principal; 2021-05-07)
PROC: B3201ZZ Computerized Tomography (CT Scan) of Thoracic Aorta using Low Osmolar Contrast (ICD-10-PCS; 2021-05-07)
PROC: B32S1ZZ Computerized Tomography (CT Scan) of Right Pulmonary Artery using Low Osmolar Contrast (ICD-10-PCS; 2021-05-07)
DX: U07.1 COVID-19 (principal); J96.91 Respiratory failure, unspecified with hypoxia; J12.82 Pneumonia due to coronavirus disease 2019; I50.33 Acute on chronic diastolic (congestive) heart failure; E03.9 Hypothyroidism, unspecified; I11.0 Hypertensive heart disease with heart failure; E78.00 Pure hypercholesterolemia, unspecified; E87.6 Hypokalemia; F15.90 Other stimulant use, unspecified, uncomplicated; F17.210 Nicotine dependence, cigarettes, uncomplicated; Z86.73 Personal history of transient ischemic attack (TIA), and cerebral infarction without residual deficits; Z79.899 Other long term (current) drug therapy
CPT/HCPCS: 36415; 71045; 71275; 80053; 80061; 83036; 83605; 83615; 83735; 83880; 84100; 84132; 84145; 84439; 84443; 84484; 85025; 85379; 85610; 85730; 86140; 87040; 87081; 87635; 93005; 94760; 97116; 97161; 97530; 97535; 99291; G0378; J0360; J0456; J0696; J1100; J1650; J7030; J8540; Q9967

== ENCOUNTER 2021-07-18 12:32 | Inpatient (IN) | payer MEDICARE, MEDICAID ==
[~2021-07-18] VITALS: Ht 180.3 cm; Wt 90.9 kg
[~2021-07-18 12:32] MED LIST changes: +ALBU6.7H9 IH; +AMLO5TAB16 PO; +BENZ-16 PO; -ESOM20CA PO; -LEVO137T2 PO; +LEVO25TA7 PO; -LOP25T PO; +LOSA50TA64 PO; +METO-395 PO
[2021-07-18] MEDS ORDERED: dexamethasone sod phosphate 10mg/ml inj IV STA (12:39)
[2021-07-18] MEDS ORDERED: methylPREDNISolone sod succ 125mg/2ml vial IV ONE (12:40)
[2021-07-18] MEDS ORDERED: famotidine/PF 10 mg/ml inj IV ONE (12:40)
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
--- NOTE | 2021-07-18 13:30 | NUR ---
BREATH SOUNDS REMAIN CLEAR, AIRWAY PATENT AT THIS TIME. PT STAtes "I FEEL LIKE MY TONGUE IS GETTING BIGGER". TONGUE LOOKS THE SAME WHEN SHE PRESENTED IN PER MY VISUAL ASSESSMENT
[2021-07-18] MEDS ORDERED: morphine 2 MG/ML inj. syringe IV PRN (14:05)
[2021-07-18] MEDS ORDERED: magnesium hydroxide 30ml (MOM) UD suspension PO PRN (14:05)
[2021-07-18] MEDS ORDERED: mag hydrox/Alum hydrox/simeth 30ml oral suspension PO PRN (14:05)
[2021-07-18] MEDS ORDERED: acetaminophen 325mg tablet PO PRN ×2 (14:05)
[2021-07-18] MEDS ORDERED: ondansetron/PF 4mg/2ml inj IV PRN (14:05)
[2021-07-18] MEDS ORDERED: METO-384 PO (14:14)
[2021-07-18] MEDS ORDERED: ASPI-1397 PO (14:14)
[2021-07-18] MEDS ORDERED: ALBU8HFA IH (14:14)
[2021-07-18] MEDS ORDERED: LEVO50TA8 PO (14:14)
[2021-07-18] MEDS ORDERED: albuterol 2.5 MG/3 ML nebule NEB PRN (18:25)
[2021-07-18] MEDS: docusate sod 100mg capsule PO SCH (20:00)
[2021-07-18] MEDS ORDERED: dexamethasone sod phosphate 10mg/ml inj IV SCH (20:00)
[2021-07-18] MEDS: diphenhydrAMINE 25mg capsule PO SCH (20:08)
[2021-07-18] MEDS: famotidine 20mg tablet PO SCH (20:08)
[2021-07-19] VITALS: BP 163/92
[2021-07-19 02:00] VITALS: BP 147/88
[2021-07-19] MEDS: diphenhydrAMINE 25mg capsule PO SCH ×2 (02:20→08:29)
[2021-07-19] MEDS: dexamethasone 4mg/ml inj IV SCH ×2 (03:30→08:31)
[2021-07-19 06:00] VITALS: BP 88/54
[2021-07-19 06:46] LABS: BASOPHILS % (AUTO) 0.4 % (0-1); EOSINOPHILS % (AUTO) 0 % (0-6); HEMATOCRIT 43.3 % (35.0-45.0); HEMOGLOBIN 14.5 g/dl (12.0-16.0); LYMPHOCYTES # (AUTO) 1.6 X10'3 (1.1-4.8); LYMPHOCYTES % (AUTO) 28.3 % (21-51); MEAN CORPUSCULAR HEMOGLOBIN 32.8 PG (27.0-31.0); MEAN CORPUSCULAR HGB CONC 33.4 g/dL (33.0-36.5); MEAN CORPUSCULAR VOLUME 98.3 FL (78-98); MEAN PLATELET VOLUME 10.5 FL (7.4-10.4); MONOCYTES # (AUTO) 0.1 X10'3 (0-0.9); MONOCYTES % (AUTO) 2.3 % (2-12); NEUTROPHILS # (AUTO) 3.9 X10'3 (1.8-7.7); PLATELET COUNT 283 X10'3 (140-440); RED CELL DISTRIBUTION WIDTH 15.9 % (11.5-14.5); WHITE BLOOD COUNT 5.6 X10'3 (4.5-11.0)
[2021-07-19 06:56] LABS: ALBUMIN 3.4 G/DL (3.4-5.0); ANION GAP 12 (8-16); BLOOD UREA NITROGEN 15 MG/DL (7-18); BUN/CREATININE RATIO 19.2 (6.6-38.0); CALCIUM 8.9 MG/DL (8.5-10.1); CHLORIDE 105 MMOL/L (99-107); CREATININE 0.78 MG/DL (0.40-0.90); GLUCOSE 203 MG/DL (70-104); POTASSIUM 3.9 MMOL/L (3.5-5.1); SODIUM 139 MMOL/L (135-145); TOTAL CARBON DIOXIDE 21.7 MMOL/L (24-32); eGFR 72 ML/MIN
[2021-07-19] MEDS: morphine 2 MG/ML inj. syringe IV PRN ×2 (06:56→10:56)
[2021-07-19] MEDS ORDERED: levoTHYROXINE 25mcg tablet PO SCH (07:00)
[2021-07-19] MEDS: docusate sod 100mg capsule PO SCH (08:00)
[2021-07-19] MEDS ORDERED: metoprolol succinate 25mg (24-HOUR) SR. Tablet PO SCH (08:00)
[2021-07-19] MEDS ORDERED: aspirin 81mg, enteric-coated 1 TAB TABLET.DR PO SCH (08:00)
[2021-07-19] MEDS: famotidine 20mg tablet PO SCH (08:28)
--- NOTE | 2021-07-19 10:37 | NUR ---
PAGER ID: [phone] MESSAGE: [phone]. Can we get PT orders? Patient says she has been feeling weak lately. Jennifer CHAN [phone]
[2021-07-19] MEDS ORDERED: DEC4T PO (12:35)
[2021-07-19] MEDS ORDERED: EPIN0.3P3 IM (12:35)
[2021-07-19] MEDS ORDERED: FAMO20TA8 PO (12:35)
[2021-07-19] MEDS ORDERED: LEVO50TA8 PO (12:35)
[2021-07-19] MEDS ORDERED: DIPH-423 PO (12:35)
[2021-07-19] MEDS ORDERED: dexamethasone inj 10 MG in dextrose 5%-water 100 ML IV SCH (14:00)
--- NOTE | 2021-07-19 14:53 | NUR ---
PAGER ID: [phone] MESSAGE: [phone]. Patient is asking for paper prescription for epi pen. Jennifer CHAN [phone]
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
== END 2021-07-19 16:15 | disposition home health service (06) | DRG 916 ==
LOC: ER 12:33 → ED HOLD 14:08 → EDBEDREQ 21:36 → MED 3N 22:35
PROVIDERS: ADMIT Internal Medicine; ATTEND Internal Medicine
DX: T78.3XXA Angioneurotic edema, initial encounter (principal); E03.9 Hypothyroidism, unspecified; E78.00 Pure hypercholesterolemia, unspecified; I10 Essential (primary) hypertension; F15.90 Other stimulant use, unspecified, uncomplicated; Z79.899 Other long term (current) drug therapy; Z83.3 Family history of diabetes mellitus; Z86.73 Personal history of transient ischemic attack (TIA), and cerebral infarction without residual deficits; Z87.891 Personal history of nicotine dependence; Z79.890 Hormone replacement therapy
CPT/HCPCS: 36415; 80048; 85025; 87081; 96374; 96375; 99285; G0378; J1100; J2270; J2405; J2930; J3490; Q0163

== ENCOUNTER 2021-10-26 00:34 | Emergency (ER) | payer MEDICARE, MEDICAID ==
[~2021-10-26] VITALS: Ht 180.3 cm; Wt 86.4 kg
[~2021-10-26 00:34] MED LIST changes: -ALBU6.7H9 IH; +ALBU8HFA IH; -AMLO5TAB16 PO; +ASPI-1397 PO; -BENZ-16 PO; +DIPH-423 PO; +EPIN0.3P3 IM; +FAMO20TA8 PO; -LEVO25TA7 PO; +LEVO50TA8 PO; +METO-384 PO; -METO-395 PO
[2021-10-26] MEDS ORDERED: famotidine 20mg tablet PO ONE (01:35)
[2021-10-26] MEDS ORDERED: diphenhydrAMINE 25mg capsule PO ONE (01:35)
[2021-10-26] MEDS ORDERED: dexamethasone 4mg tablet PO ONE (01:35)
[2021-10-26] MEDS ORDERED: SULF1TAB49 PO (03:03)
[2021-10-26 03:25] VITALS: BP 170/100
== END 2021-10-26 03:31 | disposition home or self-care (01) ==
LOC: ER 00:35
DX: H57.89 Other specified disorders of eye and adnexa (principal); T50.915A Adverse effect of multiple unspecified drugs, medicaments and biological substances, initial encounter; Y92.89 Other specified places as the place of occurrence of the external cause; I10 Essential (primary) hypertension; F15.10 Other stimulant abuse, uncomplicated; Z79.899 Other long term (current) drug therapy
CPT/HCPCS: 99284; Q0163

== ENCOUNTER 2021-10-31 02:57 | Emergency (ER) | payer MEDICARE, MEDICAID ==
[~2021-10-31] VITALS: Ht 180.3 cm; Wt 86.4 kg
[~2021-10-31 02:57] MED LIST changes: +SULF1TAB49 PO
[2021-10-31] MEDS ORDERED: famotidine 20mg tablet PO ONE (04:50)
[2021-10-31] MEDS ORDERED: triamcinolone acetonide 40mg/ml inj IM ONE (04:50)
[2021-10-31] MEDS ORDERED: dexamethasone 4mg tablet PO ONE (04:50)
[2021-10-31 06:00] VITALS: BP 169/89
== END 2021-10-31 06:01 | disposition home or self-care (01) ==
LOC: ER 02:57
DX: T78.40XA Allergy, unspecified, initial encounter (principal); L50.9 Urticaria, unspecified; R07.0 Pain in throat; E78.00 Pure hypercholesterolemia, unspecified; I10 Essential (primary) hypertension; F15.90 Other stimulant use, unspecified, uncomplicated; Z86.73 Personal history of transient ischemic attack (TIA), and cerebral infarction without residual deficits; Z79.82 Long term (current) use of aspirin; Z79.2 Long term (current) use of antibiotics; Z79.899 Other long term (current) drug therapy; Y92.89 Other specified places as the place of occurrence of the external cause
CPT/HCPCS: 96372; 99283; J3301

== ENCOUNTER 2021-11-24 14:40 | Emergency (ER) | payer MEDICARE, MEDICAID ==
[~2021-11-24] VITALS: Ht 180.3 cm; Wt 86.4 kg
[~2021-11-24 14:40] MED LIST changes: -SULF1TAB49 PO
[2021-11-24 14:47] VITALS: BP 195/121
[2021-11-24] MEDS ORDERED: LORazepam 1 MG tablet PO ONE (15:30)
== END 2021-11-24 17:20 | disposition home or self-care (01) ==
LOC: ER 14:42
DX: R03.0 Elevated blood-pressure reading, without diagnosis of hypertension (principal); I10 Essential (primary) hypertension; Z91.14 Patient's other noncompliance with medication regimen
CPT/HCPCS: 99283

== ENCOUNTER 2022-04-27 03:00 | Emergency (ER) | payer MEDICARE, MEDICAID ==
[~2022-04-27] VITALS: Ht 182.9 cm; Wt 81.8 kg
[2022-04-27] MEDS ORDERED: epiNEPHrine 1 mg/ml inj IM STA (03:04)
[2022-04-27] MEDS ORDERED: tranexamic acid 1gm/0.7% sal. 100 ML IV ONE (03:05)
[2022-04-27] MEDS ORDERED: cetirizine 10mg tablet PO ONE (03:05)
[2022-04-27] MEDS ORDERED: hydrocortisone sod succ/PF 250mg/2ml inj. IV ONE (03:05)
[2022-04-27] MEDS ORDERED: ringers solution, lacted 1,000 ML IV ONE (03:10)
[2022-04-27] MEDS ORDERED: tranexamic acid inj. 1,000 MG in normal saline 100ml IV soln 100 ML IV ONE (03:15)
[2022-04-27] MEDS ORDERED: hydrocortisone sod succ/PF 100mg/2ml inj. IV ONE (03:15)
[2022-04-27 04:03] LABS: BASOPHILS % (AUTO) 0.4 % (0-1); EOSINOPHILS # (AUTO) 0.1 X10'3 (0-0.9); EOSINOPHILS % (AUTO) 0.6 % (0-6); HEMATOCRIT 49.4 % (35.0-45.0); HEMOGLOBIN 16.5 g/dl (12.0-16.0); LYMPHOCYTES # (AUTO) 2.4 X10'3 (1.1-4.8); LYMPHOCYTES % (AUTO) 21.6 % (21-51); MEAN CORPUSCULAR HEMOGLOBIN 33.4 PG (27.0-31.0); MEAN CORPUSCULAR HGB CONC 33.4 g/dL (33.0-36.5); MEAN CORPUSCULAR VOLUME 100.1 FL (78-98); MONOCYTES # (AUTO) 0.9 X10'3 (0-0.9); MONOCYTES % (AUTO) 8.5 % (2-12); NEUTROPHILS # (AUTO) 7.6 X10'3 (1.8-7.7); NEUTROPHILS % (AUTO) 68.9 % (42-75); PLATELET COUNT 273 X10'3 (140-440); RED BLOOD COUNT 4.94 X10'6 (4.20-5.60); RED CELL DISTRIBUTION WIDTH 14.8 % (11.5-14.5)
[2022-04-27 04:12] LABS: ALANINE AMINOTRANSFERASE 24 U/L (12-78); ALBUMIN 3.9 G/DL (3.4-5.0); ALBUMIN/GLOBULIN RATIO 0.9 (1.1-1.5); ALKALINE PHOSPHATASE 52 IU/L (46-116); ANION GAP 12 (8-16); ASPARTATE AMINO TRANSFERASE 25 U/L (10-37); BILIRUBIN,TOTAL 0.6 MG/DL (0.1-1.0); BLOOD UREA NITROGEN 11 MG/DL (7-18); BUN/CREATININE RATIO 17.5 (6.6-38.0); CALCIUM 9.2 MG/DL (8.5-10.1); CHLORIDE 105 MMOL/L (99-107); CREATININE 0.63 MG/DL (0.40-0.90); GLUCOSE 111 MG/DL (70-104); POTASSIUM 3.6 MMOL/L (3.5-5.1); SODIUM 140 MMOL/L (135-145); TOTAL CARBON DIOXIDE 22.9 MMOL/L (24-32); TOTAL PROTEIN 8.2 G/DL (6.4-8.2); eGFR > 90 ML/MIN
[2022-04-27 04:15] LABS: APTT 29 SECONDS (22-32)
[2022-04-27] MEDS ORDERED: cloNIDine 0.1 mg tablet PO ONE (04:35)
[2022-04-27] MEDS ORDERED: CLON0.1T PO (05:16)
[2022-04-27] MEDS ORDERED: EPIN0.3P3 IM (05:16)
[2022-04-27 09:57] VITALS: BP 118/69
== END 2022-04-27 10:01 | disposition home or self-care (01) ==
LOC: ER 03:02
DX: R21 Rash and other nonspecific skin eruption (principal); T45.0X5A Adverse effect of antiallergic and antiemetic drugs, initial encounter; R06.02 Shortness of breath; R07.89 Other chest pain; E78.00 Pure hypercholesterolemia, unspecified; I10 Essential (primary) hypertension; F15.90 Other stimulant use, unspecified, uncomplicated; Z86.73 Personal history of transient ischemic attack (TIA), and cerebral infarction without residual deficits; Z79.82 Long term (current) use of aspirin; Z79.899 Other long term (current) drug therapy; Y92.89 Other specified places as the place of occurrence of the external cause
CPT/HCPCS: 36415; 70360; 71045; 80053; 83605; 85025; 85610; 85730; 96361; 96365; 96372; 96375; 99285; J0171; J1720; J3490; J7120

== ENCOUNTER 2024-01-11 10:57 | Emergency (ER) | payer MEDICARE, MEDICAID ==
[~2024-01-11] VITALS: Ht 177.8 cm; Wt 74.3 kg
[~2024-01-11 10:57] MED LIST changes: +CLON0.1T PO
[2024-01-11 11:02] VITALS: TEMP 97.7
[2024-01-11] MEDS: epiNEPHrine 1 mg/ml inj IM STA (11:45)
[2024-01-11] MEDS: methylPREDNISolone sod succ 125mg/2ml vial IV ONE (11:50)
[2024-01-11] MEDS: tranexamic acid inj. 1,000 MG in normal saline 100ml IV soln 90 ML IV ONE ×2 (12:04→12:34)
[2024-01-11] MEDS: normal saline 1000ML IV soln IVB ONE (12:05)
[2024-01-11] MEDS ORDERED: epiNEPHrine 1 mg/ml inj IM SCH (12:20)
[2024-01-11] MEDS: famotidine/PF 10 mg/ml inj IV ONE (12:20)
[2024-01-11] MEDS ORDERED: PANT40TA54 PO (12:45)
[2024-01-11] MEDS ORDERED: EPIN0.3A3 IM (12:45)
[2024-01-11] MEDS ORDERED: LEVO150T8 PO (12:45)
[2024-01-11] MEDS ORDERED: CARV-50 PO (12:45)
[2024-01-11] MEDS ORDERED: DIPH25CA83 PO (12:49)
[2024-01-11] MEDS: diphenhydrAMINE 50 mg/ml inj IV ONE (13:04)
[2024-01-11 14:39] VITALS: PULSE 77
[2024-01-11 15:49] VITALS: BP 171/92; RESP 22; O2SAT 96
[2024-01-11] MEDS ORDERED: famotidine/PF IV inj 20 MG in normal saline 100ml IV soln 100 ML IV SCH (20:00)
== END 2024-01-11 16:45 | disposition home or self-care (01) ==
LOC: ER 10:58
DX: T78.40XA Allergy, unspecified, initial encounter (principal); T78.3XXA Angioneurotic edema, initial encounter; E78.00 Pure hypercholesterolemia, unspecified; I10 Essential (primary) hypertension; F15.90 Other stimulant use, unspecified, uncomplicated; Z79.899 Other long term (current) drug therapy; Z79.2 Long term (current) use of antibiotics; X58.XXXA Exposure to other specified factors, initial encounter
CPT/HCPCS: 36415; 36430; 86885; 86900; 86901; 96365; 96366; 96372; 96375; 99285; J0171; J1200; J2919; J3490; J7030